=== PATIENT | female | born 1965 | race Two or more races ===

== ENCOUNTER 2018-06-09 10:21 | Emergency (ER) | payer MEDICAID, OTHER ==
[~2018-06-09] VITALS: Ht 157.5 cm; Wt 77.1 kg
[2018-06-09] MEDS ORDERED: SODIUM CHLORIDE 0.9% 1,000 ML IV ONE (10:30)
[2018-06-09] MEDS ORDERED: methylPREDNISolone SOD SUCC 125 MG/2 ML VL IV ONE (10:30)
[2018-06-09] MEDS ORDERED: FAMOTIDINE (10MG/ML) 2ML VL IV ONE (10:30)
[2018-06-09 11:32] VITALS: BP 131/73
== END 2018-06-09 11:17 | disposition home or self-care (01) ==
LOC: EDBD 10:21 → ER 10:21
DX: T78.40XA Allergy, unspecified, initial encounter (principal)
CPT/HCPCS: 94761; 96374; 96375; 99283; J2930; J3490